=== PATIENT | female | born 1980 | race Caucasian/White ===

== ENCOUNTER 2017-03-05 16:58 | Observation (INO) | payer OTHER ==
[2017-03-05 18:09] LABS: COLOR YELLOW; LEUKOCYTE ESTERASE,URINE 3+ (NEGATIVE); NITRITE,URINE NEGATIVE (NEGATIVE)
[2017-03-05 18:15] LABS: BACTERIA 4+ /hpf (NONE SEEN); MUCUS TRACE /lpf (NONE-1+)
[2017-03-05 18:18] LABS: RBC,URINE NONE SEEN /hpf (0-3)
--- NOTE | 2017-03-05 18:26 | GHP ---
[f rep st] PREOP HISTORY AND PHYSICAL DATE OF ADMISSION: 03/05/2017 ADMISSION CHIEF COMPLAINT: Intrauterine at 31-0/7 weeks gestation with contractio ns; evaluated for labor. HISTORY OF PRESENT ILLNESS: Chelsi is a 36-year-old, 3, para 2-0-0-2, with a last menstrual period of 07/23/2016, and EDC of 05/07/2017, which was confirmed by an 8-week ultrasound. She has h ad good care at [facility] since registration at 8 weeks. Patient presents compl aining of an increasing white vaginal discharge over the last 2 weeks, which has increased in intens ity, and has episodes of sometimes being malodorous. She has had increasing cramping and contractio ns over the last couple days and especially today increasing [place], cramping, and episodes o f significant pelvic pain and pressure. Patient was evaluated in the office. heart tones wer e found to be appropriate for gestational age. She was malina every 3-5 minutes. Decision was made to send her to Labor and Delivery for evaluation and to rule out labor. Currently, [place] goff denies any vaginal bleeding, no leakage of fluid; just abnormal vaginal discharge. Has had good f etal movement, and she is negative for any other of 10-point review of systems. Negative fever, chi lls, nausea, vomiting, GI, , or any other complaints. PAST OBSTETRICAL HISTORY: She had 2 full-term spontaneous vaginal deliveries. In November 2009, ba by was 7 pounds 3 ounces. She said she had an induction of labor secondary to preeclampsia. In May also a viable male 6 pounds 9 ounces with induction of labor; preeclampsia at 37 weeks. No other pregnancies. PAST GYNECOLOGICAL HISTORY: She had a normal menstrual triad. Cycles range from 35 to 38 days. [place] goff had no significant gynecological problems. No history of any abnormal Paps. control and Nu vaRing all caused increase in her migraines. PAST MEDICAL HISTORY: Significant for hypothyroidism, exercise-induced asthma, and migraines. She has a history of preeclampsia with both pregnancies and a history of hyperemesis gravidarum early in this , which has resolved. SURGICAL HISTORY: She has had a history of a cholecystectomy. ALLERGIES: Propranolol, Topamax, and Midrin; unknown reactions. CURRENT MEDICATIONS: Include levothyroxine 100 mcg daily, fluoxetine 60 mg daily, Wellbutrin 300 mg XL daily, and vitamins. LABORATORY DATA: She is A-positive, antibody negative, RPR nonreactive, rubella immune, hepatitis n egative. Pap normal. Gonorrhea and chlamydia normal. Elevated 1-hour GTT of 169; 3-hour was dimas l. SOCIAL HISTORY: She is . She lives with her and her 2 sons. She is a hwrb-df-epnd mom. She denies tobacco, alcohol, and drug use. FAMILY HISTORY: Her father and maternal grandfather have had myocardial infarctions. Her mother al so has heart disease. Mother, father, maternal grandfather, and brother all have chronic hypertensi on. She has exercise-induced asthma. Father has emphysema. Both parents have adult-onset diabetes . Maternal grandmother had lung cancer. Maternal grandfather had prostate cancer. Patient and her mother both have migraines. Paternal grandmother had Alzheimer disease. Her sister was born with club feet. OBJECTIVE: Today she is afebrile. Vital signs are stable. heart tones are 130s, moderate va riability, category 1, and appropriate for gestational age. She has some irritability and contracti ons every 7-8 minutes on the monitor. GENERAL: She is a well-developed, gravid female, in no acute distress. LUNGS: Clear to auscultation bilaterally. HEART: Regular rate and rhythm. No murmurs . ABDOMEN: Gravid, nontender, nondistended. PELVIC: Normal external genitalia. Moderate white d ischarge in the vault. Cervix external os is open but internal os is closed and long. A wet prep is positive for clue cells and whiff. ASSESSMENT AND PLAN: A 36-year-old 3 para 2-0-0-2, at 31 weeks with increased vaginal disch arge, contractions. I sent a fibronectin. I feel the patient has bacterial vaginosis , and we will treat with Flagyl. We will monitor these contractions while awaiting fibronecti n result. We will aggressively p.o. hydrate. If the fibronectin is normal, we will discharge home the patient with p.o. Flagyl. If it is positive, we will treat for labor. /[id number]/MODL
== END 2017-03-05 18:47 | disposition home or self-care (01) ==
LOC: FLD 16:58
PROVIDERS: ADMIT Advanced Practice Midwife; ATTEND Obstetrics & Gynecology
DX: O60.03 Preterm labor without delivery, third trimester (principal); O23.593 Infection of other part of genital tract in pregnancy, third trimester; O09.523 Supervision of elderly multigravida, third trimester; Z3A.31 31 weeks gestation of pregnancy
CPT/HCPCS: G0378 ×2

== ENCOUNTER 2017-03-19 10:10 | Observation (INO) | payer OTHER ==
[2017-03-19] MEDS ORDERED: ONDANSETRON 4 MG/2 ML VIAL IVP PRN (10:32)
[2017-03-19] MEDS ORDERED: D5W LR 1,000 ML IV SCH (10:45)
[2017-03-19] MEDS ORDERED: LR 1,000 ML IV SCH (11:00)
[2017-03-19 11:21] LABS: % IMMATURE GRANULYOCYTES 0.8 % (0.0-1.1); ABSOLUTE IMMATURE GRANULOCYTES 0.08 10^3/uL (0.00-0.10); ADD DIFF? NO; ADD MORPH? NO; ADD SCAN? NO; ATYPICAL LYMPHOCYTE FLAG 20 (0-99); FRAGMENT RBC FLAG 0 (0-99); HEMATOCRIT 35.7 % (38.0-47.0); HEMOGLOBIN 11.9 g/dL (12.6-16.3); LEFT SHIFT FLG 10 (0-99); LIPEMIA HEMOLYSIS FLAG 80 (0-99); MEAN CELL HEMOGLOBIN 28.1 pg (27.9-34.1); MEAN CELL HEMOGLOBIN CONCENTR. 33.3 g/dL (32.4-36.7); MEAN CELL VOLUME 84.2 fL (81.5-99.8); PLATELET CLUMPS FLAG 0 (0-99); PLATELET COUNT 239 10^3/uL (150-400); RED BLOOD CELL COUNT 4.24 10^6/uL (4.18-5.33); RED CELL DISTRIBUTION WIDTH 14.5 % (11.5-15.2)
[2017-03-19 11:34] LABS: ALANINE AMINOTRANSFERASE 35 IU/L (9-52); ALBUMIN 3.1 g/dL (3.5-5.0); ALKALINE PHOSPHATASE 191 IU/L (38-126); ANION GAP 6 mEq/L (8-16); ASPARTATE AMINOTRANSFERASE 28 IU/L (14-46); BILIRUBIN,TOTAL 0.3 mg/dL (0.1-1.4); BILIRUBIN-CONJUGATED 0.2 mg/dL (0.0-0.5); BILIRUBIN-UNCONJUGATED 0.1 mg/dL (0.0-1.1); CALCIUM 8.8 mg/dL (8.5-10.4); CARBON DIOXIDE 21 mEq/l (22-31); CHLORIDE 107 mEq/L (97-110); CREATININE 0.6 mg/dL (0.6-1.0); GLOMERULAR FILTRATION RATE > 60; GLUCOSE 74 mg/dL (70-100); LACTATE DEHYDROGENASE 485 IU/L (313-618); POTASSIUM 3.8 mEq/L (3.5-5.2); SODIUM 134 mEq/L (134-144); TOTAL PROTEIN 5.9 g/dL (6.3-8.2); URIC ACID 4.5 mg/dL (2.5-6.8)
[2017-03-19] MEDS ORDERED: ACETAMINOPHEN 325 MG TAB PO PRN (12:23)
[2017-03-19] MEDS ORDERED: oxyCODONE IR 5 MG TAB PO PRN (13:58)
[2017-03-19] MEDS ORDERED: FAMOTIDINE 20 MG TAB PO SCH (14:00)
--- NOTE | 2017-03-19 14:41 | GHP ---
[f rep st] HISTORY AND PHYSICAL DATE OF ADMISSION: 03/19/2017 DIAGNOSIS: Intrauterine at 33 weeks' gestation with severe nausea, vomiting, and headache . HISTORY OF PRESENT ILLNESS: The patient is a 36-year-old, 3, para 2-0-0-2, with a last mens trual period of 07/23/2016 and an EDC of 05/07/2017. This was confirmed by an 8-week ultrasound. S he has had good care at [facility] since 8 weeks' gestation. Her course has been complicated by hyperemesis. She had to use continuous Diclegis and Zofran throughout most of her 1st and into her 2nd trimester. She also has significant migraines that have been worse in this requiring [place] periodically for pain control. Over the last 7 days, she has had a s ignificant headache that has been resistant to Tylenol as well as [place] and she has had worsening ep isodes of nausea and vomiting several times a day. She denies any abdominal pain or any diarrhea or any other GI symptoms. She has had some minor uterine cramping, especially with vomiting but no re gular uterine contractions, no vaginal bleeding, no leakage of fluid, and she has had good mov ement. She denies any fever or chills. She has had a persistent headache but this migraine has not been associated with significant aura symptoms as most of her others have been. No other visual sy mptoms. No shortness of breath or chest pain or any other symptoms. The rest of her review of syst ems is negative. The patient was taken to labor and delivery for observation. PHYSICAL EXAMINATION: Initially, baby's heart rate was in the 170s but after IV fluids has come parth n nicely to the 140s, reactive, moderate variability, category 1. She is not malina. VITAL SI GNS: Have all been stable including blood pressures in the one teens over 60s to 70s. GENERAL: Rachael goff is a well-developed, gravid white female. She has mild distress secondary to headache and requiri ng the lights to be dimmed. LUNGS: Clear to auscultation bilaterally. HEART: Regular rate and rh ythm. No murmurs. ABDOMEN: Gravid, nontender, nondistended. PELVIC: Exam is deferred. he art tones are as above. Patient's other significant risk factors: She has hypothyroidism, and she is well controll ed on meds. She has history of preeclampsia with both of her previous pregnancies and was induced a t 38 weeks and 37 weeks respectively. She had a baseline 24-hour urine done in this which was normal as well as baseline labs. She had an elevated 1-hour GTT but a normal 3-hour GTT, is no ndiabetic in this . PAST OBSTETRICAL HISTORY: In November of 2009, she had a viable male, 7 pounds 3 ounces, induction of labor secondary to preeclampsia and in May of 2012, another viable male, 6 pounds 9 ounces, sa me thing at 37 weeks induction secondary to preeclampsia and this is her 3rd . PAST MEDICAL HISTORY: As above. PAST SURGICAL HISTORY: Cholecystectomy. ALLERGIES: She is allergic to propranolol, Topamax, and Midrin, unknown reactions. CURRENT MEDS: Include levothyroxine 100 mcg daily, fluoxetine 60 mg daily, Wellbutrin XL 300 mg jazmyne ly. LABS: She is A positive, antibody negative, RPR nonreactive, rubella immune, hepatitis negative. P ap normal. Gonorrhea and chlamydia normal. 1-hour GTT 169, 3-hour GTT negative. Baseline 24-hour urine protein was 85 mg. SOCIAL HISTORY: She is . She lives with her and 2 sons. She denies tobacco, alcoho l, and drug use. FAMILY HISTORY: Noncontributory. ASSESSMENT AND PLAN: Today, she is a 36-year-old, 3, para 2-0-0-2 at 33 weeks with episodes of nausea, vomiting, abdominal pain, and migraine headache. The patient has had 1 L IV fluid. She had D5 running. We tried Tylenol for headache which did not work. I ordered an order o f oxycodone as well as IV Zofran and Pepcid. PIH labs and CMP were all normal. I am adding amylase and lipase for liver functions. /[id number]/MODL
[2017-03-19 16:46] LABS: AMYLASE 38 IU/L (30-110)
[2017-03-19] MEDS ORDERED: ONDANSETRON DISINTEGRATING 4 MG TAB PO PRN (19:03)
== END 2017-03-19 21:01 | disposition home or self-care (01) ==
LOC: FLD 10:10
PROVIDERS: ADMIT Advanced Practice Midwife; ATTEND Advanced Practice Midwife
DX: O21.1 Hyperemesis gravidarum with metabolic disturbance (principal); O99.353 Diseases of the nervous system complicating pregnancy, third trimester; O99.283 Endocrine, nutritional and metabolic diseases complicating pregnancy, third trimester; G43.909 Migraine, unspecified, not intractable, without status migrainosus; Z3A.33 33 weeks gestation of pregnancy; E03.9 Hypothyroidism, unspecified
CPT/HCPCS: G0378 ×2; 84481-90; J2405

== ENCOUNTER 2017-04-10 05:50 | Inpatient (IN) | payer OTHER ==
[2017-04-10] MEDS ORDERED: LR 1,000 ML IV PRN (05:56)
[2017-04-10] MEDS ORDERED: EPSOM SALT 454 GM TP PRN (05:56)
[2017-04-10] MEDS ORDERED: OXYTOCIN/RINGERS LACTATE 1,000 ML IV PRN (05:56)
[2017-04-10] MEDS ORDERED: OLIVE OIL 118 ML BTL MISC PRN (05:56)
[2017-04-10] MEDS ORDERED: AMPICILLIN SODIUM 2 GM in NS 100 ML IV ONE (06:01)
[2017-04-10] MEDS ORDERED: fentaNYL 2MCG/ML/BUP 0.1% RTU 100 ML BAG EP ONE (06:07)
[2017-04-10] MEDS ORDERED: BUPIVACAINE 0.25% 30 ML SDV ONE (06:07)
[2017-04-10] MEDS ORDERED: PHENYLEPHRINE HCL 100 MCG/ML SYR ONE (06:07)
[2017-04-10] MEDS ORDERED: fentaNYL 100 MCG/2 ML INJ ONE (06:08)
[2017-04-10] MEDS ORDERED: OLIVE OIL 118 ML BTL ONE (06:12)
[2017-04-10] MEDS ORDERED: LIDOCAINE 1% 300 MG/30 ML SDV ONE (06:12)
[2017-04-10] MEDS ORDERED: AMMONIA AROMATIC 1 EACH AMP IH ONE (06:12)
[2017-04-10] MEDS ORDERED: TERBUTALINE SULFATE 1 MG/ML VIAL ONE (06:12)
[2017-04-10] MEDS ORDERED: MISOPROSTOL 200 MCG TAB ONE (06:13)
[2017-04-10] MEDS ORDERED: OXYTOCIN 10 UNIT/ML VIAL ONE (06:13)
[2017-04-10] MEDS ORDERED: HYDROCORTISONE 0.5% CREAM TP PRN (06:41)
[2017-04-10] MEDS ORDERED: SIMETHICONE 80 MG TAB CHEW PO PRN (06:41)
[2017-04-10] MEDS ORDERED: HYDROCODONE/APAP 5/325 TAB PO PRN (06:41)
[2017-04-10] MEDS ORDERED: IBUPROFEN 600 MG TAB PO PRN (06:42)
--- NOTE | 2017-04-10 06:47 | OBDEL ---
Info Type: Vaginal GBS+: Yes (GBS unknown) Antibiotic Used for + GBS: Ampicillin Number of Antibiotic Doses Given: 0 (Pt delivered too fast) Indications for Delivery: Spontaneous Labor Vaginal Delivery - Labor and Delivery Onset of Contractions Date: 04/10/17 Onset of Contractions Time: 04:30 Onset of Contractions Type: Spontaneous Rupture of Membranes Date: 04/10/17 Rupture of Membranes Time: 04:30 Rupture of Membranes Type: Spontaneous Amniotic Fluid Color: Clear Dilation Complete Date: 04/10/17 Dilation Complete Time: 20:00 Placenta Delivery Date: 04/10/17 Placenta Delivery Time: 06:20 Total Hours of Labor: 1 Laceration: 2nd Degree Repair: 3-0, Vicryl Vaginal Sponge Count Correct: Yes Vaginal Needle Count Correct: Yes Vaginal Sweep Performed: Yes EBL: 250 cc Delivery Events: Nuchal Cord (Loose, slipped over shoulder and delivered through ) Delivery Comment: No complications Data [place] Delivery Date: 04/10/17 Delivery Time: 06:14 MICHEL: 05/07/17 Gestational Age: 36 week(s) and 1 day(s) Sex of : Female Score (1 Min): 6 Score (5 Min): 8 ICD10 Worksheet Patient Problems: Problems Problem Status Onset Active labor Acute premature rupture of membranes (PPROM) delivered, current hospitalization Acute (spontaneous vaginal delivery) Acute - ICD10 Problem Qualifiers (1) Active labor (2) premature rupture of membranes (PPROM) delivered, current hospitalization (3) (spontaneous vaginal delivery)
[2017-04-10] MEDS ORDERED: METHYLERGONOVINE MAL 0.2 MG/ML INJ ONE (07:44)
--- NOTE | 2017-04-10 07:55 | GHP ---
[f rep st] HISTORY AND PHYSICAL DATE OF ADMISSION: 04/10/2017 ADMITTING DIAGNOSES: 1. Intrauterine at 36 weeks 1 day. 2. premature rupture of membranes. 3. Active labor. HISTORY OF PRESENT ILLNESS: Patient is a 36-year-old 3, para 2-0-0-2 at 36 weeks 1 day with estimated due date 05/07/2017 by last menstrual period of 07/23/2016, and confirmed by a first-trimester ultrasound at 8 weeks. The patient presents to Labor and Delivery with complaints of leakage of fluid, clear fluid at 4:30 this morning as well as the start of contractions becoming more intense and closer. The patient states good movement. Denies any vaginal bleeding. Patient does have good care at [facility] , presented in her first trimester at 8 weeks. is complicated by advanced maternal age. The patient did have genetic testing that was negative. The patient does have a history of preeclampsia with 1 and 2. Did well in this with normal blood pressures, asymptomatic. Patient has a history of hypothyroidism, stable on medication. The patient developed anemia of , and is on iron. The patient had an abnormal 1-hour Glucola, but a normal 3-hour Glucola. The patient received her Tdap in . GBS is unknown. PAST OBSTETRIC HISTORY: In November 2009, the patient delivered a full-term viable male infant, weighing 7 pounds 3 ounces at 38 weeks uncomplicated. In May 2012, the patient delivered a viable term male infant, weighing 6 pounds 9 ounce, 37 weeks without complications. GYNECOLOGIC HISTORY: Age of menarche 12, cycles are every 35-38 days x4 days. Last menstrual period 07/23/2016. The patient denies any history of abnormal Pap smears or exposure to any STDs. PAST MEDICAL HISTORY: Hyperthyroidism, exercise-induced asthma, migraine headaches, depression. PAST SURGICAL HISTORY: Cholecystectomy secondary to stones. MEDICATIONS: Include levothyroxine, fluoxetine, Wellbutrin, and vitamins. ALLERGIES: Propranolol, Topamax, Midrin. SOCIAL HISTORY: Patient is . She is doiz-qt-tgxr mom. She lives with her and their 2 sons. Denies any alcohol, tobacco, or illicit drug use. FAMILY HISTORY: Noncontributory. REVIEW OF SYSTEMS: A 10-point review of systems is negative except for the pertinent positives noted in HPI. LABS: A positive. Antibody negative. RPR nonreactive. Rubella immune. Hepatitis B surface antigen negative. HIV negative. TSH 2.2. Free T4 is 0.82, and free T3 is 3.28. The baseline 24-hour urine is 85 mg. Urine culture negative. Pap test, gonorrhea, and chlamydia cultures all negative. H and H 12.4, 38.5. One-hour Glucola 164, 3-hour Glucola 92, 141, 124, 105. GBS is unknown. PHYSICAL EXAMINATION: VITAL SIGNS: On admission, vital signs are stable. Patient is afebrile. GENERAL: Well-nourished, well-developed female, alert, oriented x3 in moderate distress secondary to pain with contractions. LUNGS: Clear to auscultation bilaterally. CARDIOVASCULAR: Regular rate and rhythm. ABDOMEN: Gravid, soft, nontender, nondistended. EXTREMITIES: Normal to inspection without calf tenderness or edema. On exam, the patient is found to be 8 cm, 100%, +1 station; grossly ruptured. On the monitor, there is a category 1 strip. heart tones with a baseline at 180 bpm, positive accelerations, no decelerations, moderate variability. She is malina every 3-4 minutes. ASSESSMENT: Patient is a 36-year-old 3, para 2-0-0-2 at 36 and 1 weeks who presents with premature rupture of membranes in active labor. PLAN: 1. Admit to Labor and Delivery for expectant management. 2. GBS is unknown. We will treat with ampicillin. 3. The patient desires an epidural. /[id number]/MODL MTDD
--- NOTE | 2017-04-10 08:13 | OBPP ---
Progress Note Assessment/Plan: Assessment:ff@u clots obtained with bimanual up to bathroom to void pericare bradycardia methergine cytotec ekg PIH labs repeat cbc as inaccurate Plan:ekg, [place] continue to observe vs and bleeding 04/10/17 08:13 Subjective: called to room . Patient bleeding more. Bimanual clots obtained. Up to the restroom to pee. Pericare completed. Asymptomatic. denies dizziness nausea. cytotec 800mcg per rectum. Methergine 0.2mg im in right hip. ff@u. Called to room intermittant bradycardia. will do ekg. will repeat cbc. Previously drawn above the iv. will obtain PIH labs previous PIH with other will look at baseline. Objective: 04/10/17 06:05 Patient ABO/Rh A POSITIVE 04/10/17 06:05 Physical Exam - Physical Exam General Appearance: WD/WN, alert, no apparent distress Abdomen: other (ff@u after bimanual) Extremities: normal range of motion Skin: normal color, warm/dry Neuro/Psych: no motor/sensory deficits, alert, normal mood/affect, oriented x 3
[2017-04-10] MEDS ORDERED: MISOPROSTOL 200 MCG TAB PR ONE (08:16)
[2017-04-10] MEDS ORDERED: METHYLERGONOVINE MAL 0.2 MG/ML INJ IM ONE (08:17)
--- NOTE | 2017-04-10 08:54 | CPEKG ---
Heart Rate: 90 RR Interval: 667 P-R Interval: 124 QRSD Interval: 82 QT Interval: 404 QTC Interval: 495 P [place]: 35 QRS [place]: 76 T Wave [place]: 49 EKG Severity - ABNORMAL ECG - EKG Impression: SINUS RHYTHM EKG Impression: VENTRICULAR BIGEMINY Electronically Signed By: Brennon Duron 10-Apr-2017 10:48:52
[2017-04-10 09:19] LABS: ALANINE AMINOTRANSFERASE 33 IU/L (9-52); ASPARTATE AMINOTRANSFERASE 30 IU/L (14-46); BILIRUBIN,TOTAL 0.5 mg/dL (0.1-1.4); BILIRUBIN-CONJUGATED 0.5 mg/dL (0.0-0.5); CREATININE 0.8 mg/dL (0.6-1.0); GLOMERULAR FILTRATION RATE > 60; LACTATE DEHYDROGENASE 637 IU/L (313-618); URIC ACID 5.9 mg/dL (2.5-6.8)
[2017-04-10 09:23] LABS: % IMMATURE GRANULYOCYTES 0.6 % (0.0-1.1); ADD DIFF? NO; ADD MORPH? NO; ADD SCAN? NO; ATYPICAL LYMPHOCYTE FLAG 0 (0-99); FRAGMENT RBC FLAG 0 (0-99); HEMATOCRIT 41.7 % (38.0-47.0); HEMOGLOBIN 13.4 g/dL (12.6-16.3); LEFT SHIFT FLG 0 (0-99); LIPEMIA HEMOLYSIS FLAG 80 (0-99); MEAN CELL HEMOGLOBIN 27.6 pg (27.9-34.1); MEAN CELL HEMOGLOBIN CONCENTR. 32.1 g/dL (32.4-36.7); MEAN CELL VOLUME 85.8 fL (81.5-99.8); MEAN PLATELET VOLUME 12.2 fL (8.7-11.7); PLATELET CLUMPS FLAG 10 (0-99); PLATELET COUNT 170 10^3/uL (150-400); RED BLOOD CELL COUNT 4.86 10^6/uL (4.18-5.33); RED CELL DISTRIBUTION WIDTH 15.2 % (11.5-15.2)
[2017-04-10 09:43] LABS: ALANINE AMINOTRANSFERASE 28 IU/L (9-52); ALBUMIN 3.2 g/dL (3.5-5.0); ALKALINE PHOSPHATASE 189 IU/L (38-126); ANION GAP 9 mEq/L (8-16); ASPARTATE AMINOTRANSFERASE 31 IU/L (14-46); BILIRUBIN,TOTAL 0.4 mg/dL (0.1-1.4); CALCIUM 9.4 mg/dL (8.5-10.4); CARBON DIOXIDE 22 mEq/l (22-31); CHLORIDE 108 mEq/L (97-110); CREATININE 0.8 mg/dL (0.6-1.0); GLOMERULAR FILTRATION RATE > 60; GLUCOSE 73 mg/dL (70-100); POTASSIUM 4.5 mEq/L (3.5-5.2); SODIUM 139 mEq/L (134-144); TOTAL PROTEIN 5.8 g/dL (6.3-8.2)
[2017-04-10] MEDS: FLUoxetine 20 MG CAP PO SCH ×2 (11:29→21:08)
[2017-04-10] MEDS: IBUPROFEN 600 MG TAB PO PRN ×3 (11:29→22:49)
[2017-04-10] MEDS: AMPICILLIN SODIUM 1 GM in NS 100 ML IV SCH ×4 (11:29→22:52)
[2017-04-10] MEDS: buPROPion XL 150 MG TAB PO SCH ×3 (11:29→21:09)
--- NOTE | 2017-04-10 13:55 | CPEKG ---
Heart Rate: 56 RR Interval: 1071 P-R Interval: 124 QRSD Interval: 82 QT Interval: 420 QTC Interval: 406 P [place]: 11 QRS [place]: 54 T Wave [place]: 26 EKG Severity - NORMAL ECG - EKG Impression: SINUS RHYTHM EKG Impression: Junctional escape beat Electronically Signed By: Brennon Duron 10-Apr-2017 17:10:59
--- NOTE | 2017-04-10 15:03 | GCON ---
[f rep st] CONSULTATION DATE OF CONSULTATION: 04/10/2017 REFERRING PHYSICIAN: Hoa Dove CNM DIAGNOSIS: Bradycardia with rates 30-40s. REASON FOR CONSULTATION: We were asked to consult regarding bradycardia post . HISTORY OF PRESENT ILLNESS: The patient is a 36-year-old, female, who delivered a healthy 3 6 week baby girl. There were no complications. Both baby and mother were doing well at time of my visit. After her delivery it was noted that she was bradycardic with rates in the 30-40s which was unusual for her. She has been asymptomatic with this heart rate. She has no dizziness, lightheaded ness. She has been up to the bathroom several times with no symptoms. She has been drinking oral f luids and has been voiding as expected. Her was at bedside holding their beautiful baby jose l. She was otherwise healthy. Her only health problem was exercise-induced asthma. She has had no symptoms of asthmatic breakthrough during this hospitalization. At time of visit, she is resting c omfortably with no complaints. PAST HISTORY: She does have exercise-induced asthma, a history of migraine headaches, and hyperthyr oid. PAST SURGICAL HISTORY: Cholecystectomy. MEDICATIONS: Levothyroxine, fluoxetine, Wellbutrin. ALLERGIES: Propranolol, Topamax, and Midrin. SOCIAL HISTORY: She is and has 2 sons and now a baby girl. 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 FAMILY HISTORY: There is no family history of cardiac arrhythmias to her knowledge. Her mother did have a stent placed in her 60s. REVIEW OF SYSTEMS: 10-point review of system is negative. PHYSICAL EXAMINATION: VITAL SIGNS: Blood pressure has been stable 130/79, heart rate 30-40s, oxyge n saturation 95%. Heart rate is regular with premature ectopy, no murmurs or rubs. LUNGS: Sounds are clear to auscultation. No wheezes, rales, or rhonchi. EXTREMITIES: Peripheral pulses are 2+ bilaterally with no edema. ABDOMEN: Nondistended and nonten hawa. NEUROLOGIC: She is alert and oriented x3 and in no distress. ASSESSMENT AND PLAN: This is a 36-year-old female, who has been healthy with no cardiac arrhythmia history. She is asymptomatic and has been since the identification of her bradycardia on monitoring . Her EKG does show trigeminy PVCs with a heart rate of 90. Likely her low heart rate is a result of the PVCs that she has been having. We will plan to get a repeat EKG early afternoon along with a n echocardiogram to ensure that she has no cardiac abnormalities including cardiomyopathy, abnormal heart structure, or abnormal function of valve. She is stable and there is no indication for teleme try monitoring at this time. We will allow her to have this time to reveles with her baby. I did disc uss this case with Dr. Kike Blas, who is in agreement with this plan. We will watch for the r esults of the EKG and echocardiogram and make recommendations accordingly. Thank you very much for asking us to be a part of this apolinar lady's care. /[id number]/MODL
--- NOTE | 2017-04-10 16:11 | PDCARPN ---
Cardiology Progress Note Assessment/Plan: Assessment: We were asked to see EKG due to bradycardia with rates in the 30s to 40s post delivery this morning. I did visit with her this morning and she was feeling well with no symptoms no of lightheadedness, dizziness, or palpitations. On review of her EKG done earlier in the morning she had sinus rhythm with a rate of 90 with trigeminy PVCs. We did have an echocardiogram done which did not show any abnormalities there is no indication of cardiomyopathy. She had no wall motion abnormalities or indication of akinesis. Her ejection fraction was normal. She had no significant valvular abnormalities. I did a follow-up visit this afternoon finding are in good spirits with no complaints. She reports she has not had any episodes of dizziness lightheadedness or palpitations since my morning visit. At this time there is no indication for further evaluation. She did have a follow-up EKG that showed sinus rhythm with heart rate mid 50s. She reports that she typically runs in the 50s to 60s for a resting heart rate. I did review the case with Dr. Kike Blas. He read the echocardiogram, showing no indication for further concern or workup. She is stable to be transferred to the area. I did visit with her nurse and reviewed the findings. We will sign off for now. Feel free to call us if you have further concerns. Thank you very much for allowing us to be a part of Chelsi's care. Best Wishes to Chelsi and her on their new Baby Girl. Plan: We will sign off for now. Please call us should there be further concern. 04/10/17 15:59 Reviewed/Discussed With: family, multidisciplinary team, other (Kike Blas MD) Time Spent With Patient: 15 minutes Objective: Intake/Output (24 Hrs) 04/09/17 04/10/17 04/11/17 05:59 05:59 05:59 Output Total 250 Balance -250 Output: Estimated Blood Loss (ml) 250 Other: Weight 91.626 kg Result Diagrams: 04/10/17 08:45 04/10/17 09:12 EK04/10/17 8:53 EKG Sinus Rhythm with ventricular bigeminy / Trigeminy HR 90. 04/10/17 14: EKG Sinus Rhythm with rate 56. Echocardiogram: Please see Echo Report. No wall motion abnormalities. LVF normal. No significant Valvular abnormalities. - Physical Exam Constitutional: WDWN, healthy appearing Cardiovascular: regular rate and rhythm, No no murmurs, No no rubs Peripheral Pulses: 2+: dorsalis-pedis (R), dorsalis-pedis (L) Respiratory: clear to auscultate bilat, No no crackles, No no wheezes Skin: warm, no edema Neurologic: AAOx3 Psychiatric: cooperative, interactive ICD10 Worksheet Patient Problems: Problems Problem Status Onset Active labor Acute premature rupture of membranes (PPROM) delivered, current hospitalization Acute (spontaneous vaginal delivery) Acute
--- NOTE | 2017-04-10 16:42 | ECHO ---
[id number] + + [address] : : [place] [address] : : [phone] + + Adult Echocardiographic Report + -----+ :Name: SANTANA DAWKINS NStudy Date: 04/10/2017 01:26 PM : : Hospital Admission Number: [id number] Location : 323: :: 1980 Gender: Female Height: 66 in : :Age: 36 yrs Race: WH Weight: 202 lb : :Reason For Study: Asymptomatic post PVCs/HR 30-40 : :after delivery this am BSA: 2.0 meters2 : + -----+ MMode/2D Measurements \T\ Calculations IVSd: 0.73 cm LVIDd: 5.3 cm FS: 36.6 % Ao root diam: LVPWd: 0.89 cm LVIDs: 3.4 cm EDV(Teich): 2.9 cm 136.3 ml LA dimension: ESV(Teich): 3.9 cm 46.4 ml EF(Teich): 66.0 % LVLd ap4: 8.1 cm SV(MOD-sp4): EDV(MOD-sp4): 44.0 ml 70.0 ml LVLs ap4: 7.0 cm ESV(MOD-sp4): 26.0 ml EF(MOD-sp4): 62.9 % Normal Measurement Values: + + :LVIDd (3.5-5.7cm) IVSd (0.6-1.1cm) LVPWd (0.6-1.1cm) Aortic Root (2.0-3.7cm)Left Atrium (1.5-4.0cm): :LV Vol(d) (76-115ml) LV Vol(s) (29-48ml) Ejec Fraction (50-65%)PV Andrzej (0.6- 1.2m/s) TV Andrzej (0.4-1.0m/s) : :MV E Andrzej (0.8-1.0m/s)MV A Andrzej (0.3-1.0m/s)LVOT Andrzej (0.7-1.2m/s) Asc Ao Andrzej ( 0.9-1.8m/s) : + + Doppler Measurements \T\ Calculations MV E max andrzej: 116.5 cm/sec Ao V2 max: 175.3 cm/sec TR max andrzej: 245.8 cm/sec MV A max andrzej: 74.0 cm/sec Ao max P.3 mmHg TR max P.2 mmHg MV E/A: 1.6 RAP systole: 5.0 mmHg RVSP(TR): 29.2 mmHg Left Ventricle The left ventricle is normal in size. There is normal left ventricular wall thickness. Left ventricular systolic function is normal. Ejection Fraction = 60-65%. No regional wall motion abnormalities noted. Right Ventricle The right ventricle is normal in size and function. Atria The left atrial size is normal. Right atrial size is normal. The interatrial septum is intact with no evidence for an atrial septal defect. Mitral Valve The mitral valve is normal in structure and function. There is no evidence of mitral valve prolapse. There is no mitral valve stenosis. There is mild mitral regurgitation. Tricuspid Valve Normal tricuspid valve. There is mild tricuspid regurgitation. Right ventricular systolic pressure is normal. Aortic Valve The aortic valve is trileaflet. The aortic valve opens well. There is no aortic stenosis. There is no aortic insufficiency. Pulmonic Valve The pulmonic valve is normal in structure and function. There is no pulmonic valvular regurgitation. Great Vessels The aortic root is normal size. Pericardium/Pleural There is no pericardial effusion. Conclusion A complete two-dimensional transthoracic echocardiogram was performed (2D, M-mode, Doppler and color flow Doppler). Left ventricular systolic function is normal. Ejection Fraction = 60-65%. There is mild mitral regurgitation. There is mild tricuspid regurgitation. Right ventricular systolic pressure is normal. Final Reading Physician: Kike P Blas, Melectronically signed on 04/10/2017 04:41 PM Ordering Physician: Marla Henry Performed By: Marina Bal RDCS
[2017-04-10] MEDS: DOCUSATE SODIUM 100 MG CAP PO PRN (21:07)
[2017-04-11] MEDS: AMPICILLIN SODIUM 1 GM in NS 100 ML IV SCH (02:16)
[2017-04-11] MEDS: IBUPROFEN 600 MG TAB PO PRN ×2 (05:49→19:34)
[2017-04-11] MEDS: LEVOTHYROXINE 25 MCG TAB PO SCH (05:49)
--- NOTE | 2017-04-11 07:32 | OBPP ---
Progress Note Assessment/Plan: Assessment: 1) s/p PPD # 1 - pt is stable 2) s/p Bradycardia - resolved 3) Hypothyroidism - stable on meds 4) Depression - stable on meds Plan: Continue routine pp care Cardio following pt; echo wnl Encourage ambulation Plan for d/c home in am 04/1104/11/17 07:32 Subjective: Pt seen and examined. Doing well, no complaints. No further bradycardia. Denies any CP or SOB. Some cramping. Moderate lochia. Voiding without difficulty. BM x 1. BF without difficulty. Objective: 04/10/17 08:45 04/10/17 09:12 Patient ABO/Rh A POSITIVE 04/10/17 06:05 Uric Acid 5.9 mg/dL (2.5-6.8) 04/10/17 08:45 Total Bilirubin 0.4 mg/dL (0.1-1.4) 04/10/17 09:12 Conjugated Bilirubin 0.5 mg/dL (0.0-0.5) 04/10/17 08:45 Unconjugated Bilirubin 0.0 mg/dL (0.0-1.1) 04/10/17 08:45 AST 31 IU/L (14-46) 04/10/17 09:12 ALT 28 IU/L (9-52) 04/10/17 09:12 Lactate Dehydrogenase 637 IU/L (313-618) H 04/10/17 08:45 Temp Pulse Resp BP Pulse Ox 36.7 C 59 L 18 120/74 96 04/10/17 20:08 04/10/17 20:08 04/10/17 20:08 04/10/17 20:08 04/10/17 20:08 Uterine Position/Fundal Height: Umbilicus -2 Uterine Tone: Firm Physical Exam - Physical Exam General Appearance: WD/WN, alert, no apparent distress Respiratory: lungs clear, normal breath sounds Cardiac/Chest: regular rate, rhythm Abdomen: normal bowel sounds, non-tender, soft, flatus (+), other (Pelvic: 2 degree lac intact) Extremities: non-tender, normal inspection Skin: normal color, warm/dry Neuro/Psych: alert, normal mood/affect, oriented x 3
[2017-04-12] MEDS: IBUPROFEN 600 MG TAB PO PRN ×2 (04:28→09:57)
[2017-04-12] MEDS: LEVOTHYROXINE 25 MCG TAB PO SCH (06:02)
[2017-04-12] MEDS: buPROPion XL 150 MG TAB PO SCH (07:57)
[2017-04-12] MEDS: FLUoxetine 20 MG CAP PO SCH (07:57)
[2017-04-12] MEDS: DOCUSATE SODIUM 100 MG CAP PO PRN (07:58)
[2017-04-12 08:52] VITALS: BP 143/84; PULSE 71; RESP 20; TEMP 97; O2SAT 93
--- NOTE | 2017-04-12 11:44 | OBPP ---
Progress Note Assessment/Plan: Assessment:ff@u well denies difficulties scant rubra lochia voiding without difficulty denies chest pain or altered rhythum denies symptoms of lightheadedness denies PIH synptoms elevated BP Plan:discharge to home with instructions fu 1 4 and 6 weeks pericare, pain management, ss infection, contraception, pelvic rest, exercise, , verbalized understanding of POC 04/10/17 08:13 04/12/17 11:41 Subjective: Doing well denies difficulties. Taking prozac has done this with all prenancy as well as with denies difficulties o wanting to change POC Objective: 04/10/17 08:45 04/10/17 09:12 Patient ABO/Rh A POSITIVE 04/10/17 06:05 Uric Acid 5.9 mg/dL (2.5-6.8) 04/10/17 08:45 Total Bilirubin 0.4 mg/dL (0.1-1.4) 04/10/17 09:12 Conjugated Bilirubin 0.5 mg/dL (0.0-0.5) 04/10/17 08:45 Unconjugated Bilirubin 0.0 mg/dL (0.0-1.1) 04/10/17 08:45 AST 31 IU/L (14-46) 04/10/17 09:12 ALT 28 IU/L (9-52) 04/10/17 09:12 Lactate Dehydrogenase 637 IU/L (313-618) H 04/10/17 08:45 Temp Pulse Resp BP Pulse Ox 36.1 C 71 20 143/84 H 93 04/12/17 08:51 04/12/17 08:51 04/12/17 08:51 04/12/17 08:51 04/12/17 08:51 Uterine Position/Fundal Height: At Umbilicus Uterine Tone: Firm Physical Exam - Physical Exam General Appearance: WD/WN, alert, no apparent distress Extremities: normal range of motion, Akanksha's sign (negative bilaterally), other (perineum approximated / minimal swelling) DTR- Lower Extremities: Knee (R): 1+, Knee (L): 1+ (no clonus) Skin: normal color, warm/dry Neuro/Psych: no motor/sensory deficits, alert, normal mood/affect, oriented x 3
--- NOTE | 2017-04-12 11:48 | OBGCSDC ---
General Delivery Information - General Info : 3 Para: 3 Delivery Physician/CNM: Hoa Dove Labs: Patient ABO/Rh A POSITIVE 04/10/17 06:05 Hct 41.7 % (38.0-47.0) 04/10/17 08:45 Vaginal - Diagnosis Labor: Spontaneous Rupture of Membranes Type: Spontaneous Amniotic Fluid Color: Clear Laceration: 2nd Degree Repair: 3-0, Vicryl Delivery Events: Nuchal Cord (Loose, slipped over shoulder and delivered through ) - Operations/Procedures L&D Analgesia/Anesthesia Type: None - Hospital Course Antepartum: Minimal difficulties with the Intrapartum: Srom and labor pp hemorrage cytotec and methergine needed to assist . Immedicately after delivery altered heartrate rhythum. Echo ekg wnl no further fu needed per cardiology : Elevated bp no PIH symptoms fu 1 week after delviery. Breastfeeing well. PAin well managed . [facility]ac [facility] - Delivery L&D Analgesia/Anesthesia Type: None Data [place] Delivery Date: 04/10/17 Delivery Time: 06:14 MICHEL: 05/06/17 Gestational Age: 36 week(s) and 4 day(s) Sex of Infant: Female Weight (gm): 2598 g Score (1 Min): 6 Score (5 Min): 8 Discharge Information - Discharge Information Condition: Good
== END 2017-04-12 13:00 | disposition home or self-care (01) | DRG 775 ==
LOC: OBSVTOIN 05:50 → FLD 05:50 → FOB 16:10
PROVIDERS: ADMIT Obstetrics & Gynecology; ATTEND Obstetrics & Gynecology
DX: O42.013 Preterm premature rupture of membranes, onset of labor within 24 hours of rupture, third trimester (principal); O70.1 Second degree perineal laceration during delivery; O69.81X0 Labor and delivery complicated by cord around neck, without compression, not applicable or unspecified; O09.523 Supervision of elderly multigravida, third trimester; O99.013 Anemia complicating pregnancy, third trimester; O99.343 Other mental disorders complicating pregnancy, third trimester; F32.9 Major depressive disorder, single episode, unspecified; O99.283 Endocrine, nutritional and metabolic diseases complicating pregnancy, third trimester; E03.9 Hypothyroidism, unspecified; R00.1 Bradycardia, unspecified; Z3A.36 36 weeks gestation of pregnancy; Z37.0 Single live birth
CPT/HCPCS: J0290; J2210; J2370; J2590; J3010; J3105